=== PATIENT | female | born 1965 | race Asian ===

== ENCOUNTER → 2017-02-22 | Outpatient (CLI) | payer OTHER | LOC: FIMAGING 08:24 | PROVIDERS: ATTEND Obstetrics & Gynecology Gynecology | DX: Z12.31 Encounter for screening mammogram for malignant neoplasm of breast (principal) ==

== ENCOUNTER → 2018-02-25 | Outpatient (CLI) | payer MEDICAID | LOC: FIMAGING 10:05 | DX: Z12.31 Encounter for screening mammogram for malignant neoplasm of breast (principal) ==